=== PATIENT | male | born 2005 | race Caucasian/White ===

== ENCOUNTER 2024-12-01 19:50 | Emergency (ER) | payer BC, SELFPAY ==
--- NOTE | 2024-12-01 19:53 | ECG_ITS ---
Test Reason : CP Blood Pressure : */* mmHG Vent. Rate : 198 BPM Atrial Rate : * BPM P-R Int : * ms QRS Dur : 106 ms QT Int : 260 ms P-R-T Axes : * 11 31 degrees QTcB Int : 471 ms Supraventricular tachycardia Incomplete right bundle branch block Nonspecific ST abnormality Abnormal ECG No previous ECGs available Referred By: Lizbeth Nieto Electronically Signed By: Trevor Segundo
[2024-12-01 20:02] VITALS: BP 112/73; PULSE 202; RESP 16; BMI 26.5
[2024-12-01] MEDS: Adenosine 6 MG/2 ML VIAL IVPUSH (20:22)
[2024-12-01] MEDS: Adenosine 6 MG/2 ML VIAL 12 MG IVPUSH (20:22)
[2024-12-01 20:23] VITALS: BP 111/64; PULSE 143; RESP 11; O2SAT 100
[2024-12-01] MEDS: Metoprolol Tartrate 5 MG/5 ML VIAL IVPUSH (20:23)
--- NOTE | 2024-12-01 20:23 | ECG_ITS ---
Test Reason : SVT Blood Pressure : */* mmHG Vent. Rate : 96 BPM Atrial Rate : 96 BPM P-R Int : 146 ms QRS Dur : 106 ms QT Int : 328 ms P-R-T Axes : 56 6 31 degrees QTcB Int : 414 ms Normal sinus rhythm Possible Left atrial enlargement Incomplete right bundle branch block Borderline ECG When compared to the previous EKG of Sinus rhythm has replaced SVT Referred By: Erin Bearden Electronically Signed By: Trevor Segundo
[2024-12-01] MEDS: 0.9 % Sodium Chloride 1,000 ML 999 ML IVCONT ×2 (20:26→22:15)
[2024-12-01 20:44] LABS: MANUAL DIFF FLAG NO
--- NOTE | 2024-12-01 20:45 | PC.NURSE ---
Pts HR noted to increase to 175 bpm, MD aware. Plan for second dose of Metoprolol and Zofran as pt was reporting nausea. While t/w was retrieving the Metoprolol, pt started to vomit and his SVT broke to a NSR at 96 bpm. Pt reports relief of symptoms, no longer feeling nauseated, refusing Zofran. Metoprolol held. aware.
[2024-12-01 21:01] LABS: Alanine Aminotransferase 70 U/L (0-40); Albumin Level 4.5 g/dL (3.5-5.0); Alkaline Phosphatase 84 U/L (39-117); Anion Gap 16 (12-20); Aspartate Amino Transferase 54 U/L (5-37); Bilirubin Direct 0.2 mg/dL (0.0-0.5); Bilirubin Total 0.4 mg/dL (0.0-1.0); Blood Urea Nitrogen 19 mg/dL (9-16); Calcium 9.4 mg/dL (8.4-10.2); Carbon Dioxide 21 mmol/L (22-29); Chloride 107 mmol/L (96-108); Creatinine Clr Calc Pharmacy 108.6; Estimated Glomerular Filt Rate > 60; Glucose Random 154 mg/dL (60-115); Potassium 4.7 mmol/L (3.3-5.1); Sodium 139 mmol/L (135-145); Total Protein 7.3 g/dL (6.5-8.0)
--- OUTSIDE RECORDS SUMMARY | 2024-12-01 21:01 | XMS_ITS | Clinical Summary ---
Author Organization [facility] Address [address] [id number] Care Team Providers Care Stock Crane Operator Name Role Phone Joel Pichardo MD Primary Care Provider [phone] Joel Pichardo MD Unavailable [phone] Active Problems Problem Noted Date Diagnosed Date Allergic conjunctivitis 05/19/2021 Scoliosis 04/04/2020 Overview (09/05/2023): Description: [facility] ortho 05/2020 Resolved Problems Problem Noted Date Diagnosed Date Resolved Date Encounter for immunization 10/23/2022 0 10/25/2023 Immunizations Name Administration Dates Next Due COVID-19, mRNA (Pfizer Pre F all 2022) Monovalent, 30 mcg/0.3 ml 01/22/2021,12/18/2020 DTAP-IPV 10/25/2009 DTaP 04/16/2006 DTaP-HEP B-IPV (Pediarix) 01/22/2005,2004, 2004 HIB (PRP-T) 01/22/2005,2004,2004 HPV9 (Gardasil 9) 08/13/2016,04/03/2016,01/31/20 16 Hep A (pedi) 07/31/2015,01/28/2015 Hep B (pedi) 2004 Hep B - 01/22/2005,2004,2004 Hib (PRP-OMP) 04/16/2006 IPV 01/22/2005,2004,2004 Influenza nasal,unspecified formulation 07/31/2015 Influenza,seasonal,trivalent ,preservat rand (FLUZONE MDV) 05/10/2009,05/14/2008,05/27/2006,07/23,06/18/2005 MMR 10/25/2009,04/16/2006 Meningoccal, Meningococal MC V4 unspecified 07/31/2015 Meningococcal ACWY (Menactra) 10/16/2021 Pneumococcal - 07/10/2005, 5,2004,09/10 Tdap 10/23/2022,01/28/2015 Varicella 10/25/2009,07/10/2005 influenza,seasonal,trivalent ,PF (Fluzone, Fluarix, Flulaval) 06/29/2007 Social History Tobacco Use Types Packs/Day Years Used Date Smoking Tobacco: Never Tobacco Cessation:Counseling Given: Not Answered Comments:Smoking Status:No current tobacco use Sex and Gender Information Value Date Recorded Sex Assigned at Male 02/01/2024 1:22 PM EDT Legal Sex Male 1:39 PM EDT Gender Identity Male 02/01/2024 1:22 PM EDT Sexual Orientation Straight 02/01/2024 1: 22 PM EDT Last Filed Vital Signs Vital Sign Reading Time Taken Comments Blood Pressure 110/64 10/23/2022 10:31 AM EDT Pulse 76 10/23/2022 10:31 AM EDT Temperature 37.1 ??C (98.7 ??F) 02/01/2024 1:31 PM ED T Respiratory Rate 16 10/23/2022 10:31 AM EDT Oxygen Saturation 98% 10/23/2022 10:31 AM EDT Inhaled Oxygen Concentration - - Weight 80.8 kg (178 lb 2 oz) 02/01/2024 1:31 PM EDT Height 182.9 cm (6') 10/23/2022 10:31 AM EDT Body Mass Index 24.16 10/23/2022 10:31 AM EDT Plan of Treatment Health Maintenance Due Date Last Done Comments Hepatitis C Screening 2004 COVID-19 Vaccine ( season) 2024 01/22/2021, 12/18/2020 Influenza (Season Ended) 2025 015, 05/10/2009, 05/14/2008, Additional history exists DTaP/Tdap/Td (8 - Td or Tdap) 10/23/2032 10/23/2022, 01/28/2015, 10/25/2009, Additional history exists Zoster (Shingrix) (1 of 2) 2054 10/25/2009, Hep B Completed 01/22/2005, 01/01, 2004, Additional history exists Pneumococcal Aged Out 07/10/2005, 01/01, 2004, Additional history exists No longer eligible based on patient's age to complete this topic Hib Completed 04/16/2006, 01/01, 2004, Additional history exists MMR Completed 10/25/2009, 04/16/2006 Polio (IPV/OPV) Completed 10/25/2009, 01/01, 01/22/2005, Additional history exists Varicella Completed 10/25/2009, 07/10/2005 Hearing Discontinued 01/26/2013, 10/17/2007 Hep A Completed 07/31/2015, 01/28/2015 HPV Vaccine Completed 08/13/2016, 09/2015, 01/31/2016 Meningococcal ACWY Completed 10/16/2021, 07/31/2015 LDL Cholesterol Discontinued 10/23/2022, 01/31/2016 Physical Discontinued 10/23/2022, 09/30, 04/04/2020, Additional history exists Procedures Procedure Name Priority Date/Time Associated Diagnosis Comments LIPID PANEL, PLASMA Routine 10/23/2022 1 1:30 AM EDT PURE TONE AUDIOMETRY (THRESHOLD); AIR ONLY Routine 01/26/2013 2:58 PM EDT from Last 3 Months or Most Recently Relevant to Health Maintenance Results * LIPID PANEL, PLASMA (10/23/2022 11:30 AM EDT) CHOLESTEROL/HDL RATIO 2.2 PHCT CONVERSIONS CHOLESTEROL 141 PHCT CONVERSIONS HDL 64 PHCT CONVERSIONS LDL 63 PHCT CONVERSIONS TRIGLYCERIDES 69 PHCT CONVERSIONS 10/23/2022 11:3 0 AM EDT us Joel Pichardo MD LABORATORY Final Result PHCT CONVERSIONS * PURE TONE AUDIOMETRY (THRESHOLD); AIR ONLY (01/26/2013 2:58 PM EDT) COMPLETED Completed: See Flowsheet PHCT CONVERSIONS 01/26/2013 2:58 PM EDT us Php Unknown Prov MINOR PROCEDURE Final Result Performing Organization Address City/[facility]/ZIP Co de Phone Number PHCT CONVERSIONS from Last 3 Months or Most Recently Relevant to Health Maintenance Insurance [id number] PPO Care Teams Stock Crane Operator Relationship Specialty Start Date End Date Joel Pichardo MD [address] [place] [address] PCP - General 03/08/23 Joel Pichardo MD [address] [phone] PCP - Backup PCP Pediatrics 09/02/23
--- OUTSIDE RECORDS SUMMARY | 2024-12-01 21:02 | XMS_ITS ---
Author Name [facility] Organization Unknown History of Medication Use Medication Directions Dispensed Refills Start Date End Date Stat Medication Administration not documented Medication Administration not documented completed Encounters Encounter Type Encounter Reason Primary Diagnosis Location Date Ambulatory [facility] 05/12/2024 Ambulatory [facility] 02/01/2024 Care Team Organization Name Specialty Phone Email Start Date End Da te [facility] 11/25/2024 [facility] Primary Care 05/02/2024 [facility] Primary Care 04/24/2024 [facility] 04/04/2024 [facility] Primary Care 02/01/2024 [facility] 10/16/2021 10/16/2021
--- OUTSIDE RECORDS SUMMARY | 2024-12-01 21:02 | XMS_ITS | Encounter Summary ---
Author Organization [facility] Address [address] [place] [address] Care Team Providers Care Anesthesia Technician Name Role Phone Joel Pichardo MD Primary Care Provider [phone] Joel Pichardo MD Unavailable [phone] Encounter Details Date Type Department Care Team (Late st Contact Info) Description 05/19/2012 Orders Only NON FC SA NON FC UNK Provider, Unknown Social History Tobacco Use Types Packs/Day Years Used Date Smoking Tobacco: Never Assessed Sex and Gender Information Value Date Recorded Sex Assigned at Male 02/01/2024 1:22 PM EDT Legal Sex Male 1:39 PM EDT Gender Identity Male 02/01/2024 1:22 PM EDT Sexual Orientation Straight 02/01/2024 1: 22 PM EDT documented as of this encounter Plan of Treatment Not on file documented as of this encounter Visit Diagnoses Not on filedocumented in this encounter Care Teams Anesthesia Technician Relationship Specialty Start Date End Date [place] [address] PCP - General 03/08/23 [place] [address] PCP - Backup PCP Pediatrics 09/02/23 documented as of this encounter
--- OUTSIDE RECORDS SUMMARY | 2024-12-01 21:02 | XMS_ITS | Encounter Summary ---
Author Organization [facility] Address [address] [place] [address] Care Team Providers Care Denture Finisher Name Role Phone Joel Pichardo MD Primary Care Provider [phone] Joel Pichardo MD Unavailable [phone] Encounter Details Date Type Department Care Team (Late st Contact Info) Description 12/18/2009 Orders Only NON FC SA NON FC [...] on filedocumented in this encounter Care Teams Denture Finisher Relationship Specialty Start Date End Date Joel Pichardo MD [place] [phone] PCP - General 03/08/23 [place] [address] PCP - Backup PCP Pediatrics 09/02/23 documented as of this encounter
--- OUTSIDE RECORDS SUMMARY | 2024-12-01 21:02 | XMS_ITS | Clinical Summary ---
Author Organization [facility] Address [address] [place] [address] Care Team Providers Care Chairman President And Chief Executive Officer Name Role Phone Joel Pichardo MD Primary Care Provider [phone] Source Comments Please note that some or all of the patient's information could have additional privacy protections. State laws allow health care providers to render certain types of treatment to minors without parental consent. Please do not assume that this information can be shared solely by obtaining just the consent of the patient's parent/guardian. Please determine if all or part of the patient's care was rendered without parent/guardian involvement. And, if so, obtain the minor's consent prior to disclosure.[facility] Allergies No known active allergies Medications No known medications Family History Medical History Relation Name Comments Scoliosis Maternal Grandmother Relation Name Status Comments Maternal Grandmother Social History Tobacco Use Types Packs/Day Years Used Date Smoking Tobacco: Never Other Needs Answer Date Recorded Anything else about your child you'd like help w ith? Not on file 04/16/2023 Share good news about positive changes: Not on f ile 04/16/2023 Sex and Gender Information Value Date Recorded Sex Assigned at Not on file Legal Sex Male 2:20 AM EST Gender Identity Not on file Sexual Orientation Not on file Last Filed Vital Signs Vital Sign Reading Time Taken Comments Blood Pressure 144/78 05/02/2020 3:59 PM EDT Pulse 104 05/02/2020 3:59 PM EDT Temperature - - Respiratory Rate - - Oxygen Saturation - - Inhaled Oxygen Concentration - - Weight 88.9 kg (195 lb 15.8 oz) 05/02/2020 3:59 PM EDT Height 181 cm (5' 11.26 ) 05/02/2020 3:59 PM EDT Body Mass Index 27.14 05/02/2020 3:59 PM EDT Plan of Treatment Health Maintenance Due Date Last Done Comments DTaP/TDAP/TD VACCINES (1 - Tdap) 2011 ADOLESCENT HIV SCREENING 2017 COVID-19 Vaccine (2023-2 5 season) 2024 INFLUENZA (#1) 2024 NIRSEVIMAB VACCINES UNDER 8 MONTHS Aged Out No longer eligible based on patient's age to complete this topic Insurance [employer] Care Teams Chairman President And Chief Executive Officer Relationship Specialty Start Date End Date Joel Pichardo MD [address] [place] [id number] PCP - General General Pediatrics 04/12/20
--- OUTSIDE RECORDS SUMMARY | 2024-12-01 21:02 | XMS_ITS | Encounter Summary ---
Author Organization [facility] Address [address] [place] [address] Care Team Providers Care Home Maker Name Role Phone Joel Pichardo MD Primary Care Provider [phone] Joel Pichardo MD Unavailable [phone] Encounter Details Date Type Department Care Team (Late st Contact Info) Description 12/02/2010 Orders Only NON FC SA NON FC [...] on filedocumented in this encounter Care Teams Home Maker Relationship Specialty Start Date End Date [place] [phone] PCP - General 03/08/23 [place] [phone] PCP - Backup PCP Pediatrics 09/02/23 documented as of this encounter
--- OUTSIDE RECORDS SUMMARY | 2024-12-01 21:02 | XMS_ITS | Encounter Summary ---
Author Organization [facility] Address [address] [place] [address] Care Team Providers Care Windmill Mechanic Name Role Phone Joel Pichardo MD Primary Care Provider [phone] Joel Pichardo MD Unavailable [phone] Encounter Details Date Type Department Care Team (Late st Contact Info) Description 10/18/2008 Orders Only NON FC SA NON FC [...] on filedocumented in this encounter Care Teams Windmill Mechanic Relationship Specialty Start Date End Date [place] [phone] PCP - General 03/08/23 [place] [phone] PCP - Backup PCP Pediatrics 09/02/23 documented as of this encounter
--- OUTSIDE RECORDS SUMMARY | 2024-12-01 21:02 | XMS_ITS | Clinical Summary ---
Author Organization [facility] Address [address] [place] [address] Care Team Providers Care Painting And Coating Worker Name Role Phone Unavailable Primary Care Provider Unavailabl e Social History Tobacco Use Types Packs/Day Years Used Date Smoking Tobacco: Never Assessed Sex and Gender Information Value Date Recorded Sex Assigned at Not on file Legal Sex Male 6:20 PM EST Gender Identity Not on file Sexual Orientation Not on file Last Filed Vital Signs Vital Sign Reading Time Taken Comments Blood Pressure 104/70 06/06/2020 6:00 PM EST Sitting Left arm Pulse 106 06/06/2020 6:00 PM EST Temperature - - Respiratory Rate - - Oxygen Saturation - - Inhaled Oxygen Concentration - - Weight 89 kg (196 lb 3.4 oz) 06/06/2020 6:00 PM EST Height - - Body Mass Index - - Plan of Treatment Health Maintenance Due Date Last Done Comments Varicella Vaccines (1 of 2 - 13+ 2-dose series) 2017 HPV Vaccines (1 - Male 3-dos e series) 2019 Meningococcal B Vaccine (1 o f 2 - Standard) 2020 DTaP,Tdap,and Td Vaccines (1 - Tdap) 2023 Hepatitis B Vaccines (1 of 3 - 19+ 3-dose series) 2023 COVID-19 Vaccine ( - 2023-2 5 season) 2024 Influenza Vaccine (Season Ended) 2025 HIB Vaccines Aged Out No longer eligi ble based on patient's age to complete this topic Hepatitis A Vaccines Aged Out No long er eligible based on patient's age to complete this topic IPV Vaccines Aged Out No longer eligi ble based on patient's age to complete this topic MMR Vaccines Aged Out No longer eligi ble based on patient's age to complete this topic Meningococcal ACWY Vaccine Aged Out N o longer eligible based on patient's age to complete this topic Pneumococcal Vaccine: Pediat rics (0 to 5 Years) and At-Risk Patients (6 to 64 Years) Aged Out No longer eligible b ased on patient's age to complete this topic RSV Immunization Patients Un jb 20 months Aged Out No longer eligible b ased on patient's age to complete this topic
--- OUTSIDE RECORDS SUMMARY | 2024-12-01 21:02 | XMS_ITS | Clinical Summary ---
Author Organization [facility] Address [address] [place] [address] Care Team Providers Care Cash Manager Name Role Phone Unavailable Primary Care Provider Unavailabl e Medications No known medications Active Problems No known active problems Social History Tobacco Use Types Packs/Day Years Used Date Smoking Tobacco: Never Assessed Sex and Gender Information Value Date Recorded Sex Assigned at Not on file Gender Identity Not on file Sexual Orientation Not on file Last Filed Vital Signs Vital Sign Reading Time Taken Comments Blood Pressure 104/70 06/06/2020 6:00 PM EST Pulse 106 06/06/2020 6:00 PM EST Temperature 37 ??C (98.6 ??F) 06/06/2020 6:00 PM EST Respiratory Rate - - Oxygen Saturation 96% 06/06/2020 6:00 PM EST Inhaled Oxygen Concentration - - Weight 89 kg (196 lb 3.4 oz) 06/06/2020 6:00 PM EST Height - - Body Mass Index - - Plan of Treatment Health Maintenance Due Date Last Done Comments Hepatitis B Vaccines (1 of 3 - 3-dose series) 2004 Hepatitis C Screening 2004 COVID-19 Vaccine (#1) 01/03/2005 Depression Screening 2016 Preventative Health Evaluation 2022 DTap / Tdap / Td (1 - Tdap) 2023 Influenza Vaccine (#1) 2024 Pneumococcal Vaccine Aged Out No long er eligible based on patient's age to complete this topic RSV Ped < 20 months Aged Out No longe r eligible based on patient's age to complete this topic
[2024-12-01 21:07] LABS: B Type Natriuretic Peptide < 10 pg/mL (<100)
[2024-12-01 21:08] LABS: Troponin-I High Sensitivity 69.4 ng/L (<3.5-35.0)
--- NOTE | 2024-12-01 21:14 | ED.CHESTPAIN ---
HPI - Chest Pain General Chief Complaint: Chest Pain Stated Complaint: chest pain Time Seen by Provider: 12/01/24 20:11 Source: patient Mode of arrival: ambulatory Limitations: no limitations History of Present Illness ED Provider: Dr. Erin Bearden HPI narrative: Patient comes to the emergency room reporting substernal chest pressure, palpitations, mild shortness of breath. Patient states that earlier today he was hiking and playing golf just prior to arrival. Patient denies any medical history. Patient denies any syncopal episodes. Denies using drugs or alcohol. Related Data Previous Rx's ?Medication ?Instructions ?Recorded metoprolol succinate 25 mg 25 mg PO DAILY #90 tabs 12/02/24 tablet,extended release 24 hr (Toprol XL) Allergies Allergy/AdvReac Type Severity Reaction Status Date / Time No Known Allergies Allergy Verified 12/01/24 20:03 Review of Systems Review of Systems: Constitutional : No Weight loss, No Fever, No Chills, No Night Sweats, No Fatigue, No Malaise ENT/Mouth : No Hearing loss, No Ear Pain, No Nasal Congestion, No Sinus Pain, No Hoarseness, No sore throat, No Rhinorrhea, No Swallowing Difficulty Eyes: No Eye Pain, No Swelling, No Redness, No Foreign Body, No Discharge, No Vision Changes Cardiovascular : Patient complaining of substernal chest pressure, minimal pain, complaining of palpitations, rapid heart rate Respiratory : No Cough, No Sputum, No Wheezing, No Smoke Exposure, complaining of mild Dyspnea Gastrointestinal : No Nausea, No Vomiting, No Diarrhea, No Constipation, No abdominal Pain, No Hematochezia, No Melena Genitourinary : no irregular bleeding, No Dysuria, No Urinary Frequency, No Hematuria, No Urinary Incontinence, No Urgency, No Flank Pain, No Urinary Flow Changes, No Hesitancy Musculoskeletal : No joint pain, No Myalgias, No Joint Swelling Skin : No Skin Lesions, No rash Neuro : No Weakness, No Numbness, No Paresthesias, No Loss of Consciousness, No Dizziness, No Headache Psych : No Anxiety/Panic, No Depression, No SI/HI/AH/VH, No Social Issues, Heme/Lymph: No Bruising, No Bleeding,No Lymphadenopathy Endocrine : No Polyuria, No Polydipsia, No Temperature Intolerance PMFSH Social History Social History Smoked in Last 30 Days: No Use of substances other than those prescribed or required for medical reasons: No Advance Directives: No Advance Directives Information Provided: No Do you have a plan to hurt others: No Plan Physical Exam Vital Signs: Vital Signs: Last Vital Signs Pulse 83 12/02/24 00:00 Resp 15 12/02/24 00:00 BP 97/61 12/02/24 00:00 Pulse Ox 96 12/02/24 00:00 O2 Del Method Room Air 12/02/24 00:00 BMI result Body Mass Index 26.5 Const: Other: Appearance: Alert. Oriented X3. No acute distress. Eyes: Pupils equal, round and reactive to light. ENT: Pharynx normal. Neck: Normal inspection. Neck supple. No lymph nodes noted. No crepitus CVS: Heart rate above 200, Pulses normal. Normal S1 and S2 Respiratory: No respiratory distress. Breath sounds normal. No Wheezing. No rales Abdomen: Soft and nontender. No rigidity. No distention. Skin: Skin warm and dry. Normal skin color. Normal skin turgor. Extremities: No lower extremity edema. No Lacerations. No Rash Neuro: Oriented X 3. No motor deficit. No sensory deficit. Moving all extremities. No slurred speech. CN 2 through 12 grossly intact Psych: calm, cooperative, normal affect Medications Administered Discontinued Medications Generic Name Dose Route Start Last Admin Trade Name Tonyq PRN Reason Stop Dose Admin Adenosine 6 mg 12/01/24 20:20 12/01/24 20:22 Adenosine 6 Mg/2 Ml Vial IVPUSH 12/01/24 20:21 6 mg STAT STA Administration Adenosine 12 mg 12/01/24 20:20 12/01/24 20:22 Adenosine 6 Mg/2 Ml Vial IVPUSH 12/01/24 20:21 12 mg STAT STA Administration Sodium Chloride 1,000 mls @ 999 mls/hr 12/01/24 20:21 12/01/24 22:13 Ns IVCONT 12/01/24 21:21 Infused .Q1H1M ONE Infusion Sodium Chloride 1,000 mls @ 999 mls/hr 12/01/24 22:06 12/01/24 23:37 Ns IVCONT 12/01/24 23:06 Infused .Q1H1M ONE Infusion Metoprolol Tartrate 5 mg 12/01/24 20:21 12/01/24 20:23 Metoprolol Tartrate 5 Mg/5 Ml Vial IVPUSH 12/01/24 20:22 5 mg ONCE ONE Administration Protocol Metoprolol Tartrate 5 mg 12/01/24 20:43 12/01/24 20:45 Metoprolol Tartrate 5 Mg/5 Ml Vial IVPUSH 12/01/24 20:44 Not Given ONCE ONE Protocol Ondansetron HCl 4 mg 12/01/24 20:43 12/01/24 20:45 Ondansetron Hcl 4 Mg/2 Ml Vial IVPUSH 12/01/24 20:44 Not Given ONCE ONE Ondansetron HCl 4 mg 12/01/24 21:36 12/01/24 21:37 Ondansetron Hcl 4 Mg/2 Ml Vial IVPUSH 12/01/24 21:37 4 mg ONCE ONE Administration Medical Decision Making Medical Decision Making MDM Narrative: When patient arrived, an EKG was done. My interpretation: SVT, heart rate 198, nonspecific changes, QTC 471 Patient was given 6 mg of adenosine without change, then 12 mg. Then 5 mg of adenosine. Slowly, the heart rate decreased, stayed in the 150s for about 1/2 hour and then suddenly dropped to 80-90 Patient states that he feels much better, no pressure, no chest pain. Next EKG shows normal sinus rhythm, heart rate 96, no ST segment depression or elevation, no T-wave inversion, no delta waves, QTC 414 My interpretation of labs: Patient's white blood cell count is slightly elevated, likely reactive leukocytosis, normal chemistry, troponin bumped at 69.4, 2nd troponin was 471, expected due to the SVT, BNP negative I discussed the patient with Dr. Segundo from Cardiology, patient will be started on 25 mg of Toprol, no need for admission I discussed the above-mentioned with the patient and his family, all agree with plan. Patient will follow-up with cardiology Differential Diagnosis Differential Diagnoses: The differential diagnosis associated with the presentation includes (SVT, AFib, a flutter) Admission/Observation Consideration of admission/observation: Escalation of care including admission/observation considered (Given patient's presentation vitals, observation was considered) Consult Healthcare Provider Management of the patient was discussed with: [employer] Lab Data [facility] Lab Attestation statement: I reviewed the patient's lab results. 12/01/24 20:40 12/01/24 20:41 Labs: Lab Results 12/01/24 12/01/24 12/01/24 Range/Units 20:40 20:41 23:42 WBC 11.0 H (4.8-10.8) X10*3/uL RBC 4.90 (4.60-5.80) X10*6/uL Hgb 14.6 (14.0-18.0) g/dl Hct 43.0 (42.0-52.0) % MCV 87.8 (80.0-98.0) fL MCH 29.8 (27.0-33.0) pg MCHC 34.0 (31.0-36.0) g/dl RDW 12.1 (11.0-16.0) % Plt Count 225 (160-400) X10*3/uL MPV 10.4 (9.4-12.4) fL Immature Gran % (Auto) 0.4 (0.0-0.4) % Neut % (Auto) 78.6 H (45-73) % Lymph % (Auto) 11.3 L (20-40) % [place] % (Auto) 7.4 (2-11) % Eos % (Auto) 1.8 (0-4) % Baso % (Auto) 0.5 (0-2) % Lymph # (Auto) 1.2 (1.2-4.9) X10*3/uL [place] # (Auto) 0.8 (0.1-1.2) X10*3/uL Eos # (Auto) 0.2 (0.0-0.4) X10*3/uL Baso # (Auto) 0.1 (0.0-0.2) X10*3/uL Abs Immat Gran (auto) 0.04 H (0.00-0.03) X10*3/uL Absolute Neuts (auto) 8.6 H (2.0-8.3) x10*3/uL Absolute Nucleated RBC 0.000 (0.0-0.012) X10*3/uL Nucleated RBC % (auto) 0.0 (0.0-0.2) /100WBC Sodium 139 (135-145) mmol/L Potassium 4.7 (3.3-5.1) mmol/L Chloride 107 (96-108) mmol/L Carbon Dioxide 21 L (22-29) mmol/L Anion Gap 16 (12-20) BUN 19 H (9-16) mg/dL Creatinine 1.12 (0.5-1.4) mg/dL Estim Creat Clear Calc 108.6 Estimated GFR > 60 Random Glucose 154 H (60-115) mg/dL Calcium 9.4 (8.4-10.2) mg/dL Total Bilirubin 0.4 (0.0-1.0) mg/dL Direct Bilirubin 0.2 (0.0-0.5) mg/dL AST 54 H (5-37) U/L ALT 70 H (0-40) U/L Alkaline Phosphatase 84 (39-117) U/L Troponin I High Sens 69.4 H 470.8 H* D (<3.5-35.0) ng/L B-Natriuretic Peptide < 10 (<100) pg/mL Total Protein 7.3 (6.5-8.0) g/dL Albumin 4.5 (3.5-5.0) g/dL Urine Opiates Screen (Not Detect) Ur Buprenorphine Scrn (Not Detect) ng/mL Ur Oxycodone Screen (Not Detect) ng/mL Urine Methadone Screen (Not Detect) ng/mL Urine Fentanyl Screen (Not Detect) Ur Barbiturates Screen (Not Detect) Ur Phencyclidine Scrn (Not Detect) Ur Amphetamines Screen (Not Detect) U Benzodiazepines Scrn (Not Detect) Urine Cocaine Screen (Not Detect) U Marijuana (THC) Screen (Not Detect) 12/02/24 Range/Units 00:31 WBC (4.8-10.8) X10*3/uL RBC (4.60-5.80) X10*6/uL Hgb (14.0-18.0) g/dl Hct (42.0-52.0) % MCV (80.0-98.0) fL MCH (27.0-33.0) pg MCHC (31.0-36.0) g/dl RDW (11.0-16.0) % Plt Count (160-400) X10*3/uL MPV (9.4-12.4) fL Immature Gran % (Auto) (0.0-0.4) % Neut % (Auto) (45-73) % Lymph % (Auto) (20-40) % [place] % (Auto) (2-11) % Eos % (Auto) (0-4) % Baso % (Auto) (0-2) % Lymph # (Auto) (1.2-4.9) X10*3/uL [place] # (Auto) (0.1-1.2) X10*3/uL Eos # (Auto) (0.0-0.4) X10*3/uL Baso # (Auto) (0.0-0.2) X10*3/uL Abs Immat Gran (auto) (0.00-0.03) X10*3/uL Absolute Neuts (auto) (2.0-8.3) x10*3/uL Absolute Nucleated RBC (0.0-0.012) X10*3/uL Nucleated RBC % (auto) (0.0-0.2) /100WBC Sodium (135-145) mmol/L Potassium (3.3-5.1) mmol/L Chloride (96-108) mmol/L Carbon Dioxide (22-29) mmol/L Anion Gap (12-20) BUN (9-16) mg/dL Creatinine (0.5-1.4) mg/dL Estim Creat Clear Calc Estimated GFR Random Glucose (60-115) mg/dL Calcium (8.4-10.2) mg/dL Total Bilirubin (0.0-1.0) mg/dL Direct Bilirubin (0.0-0.5) mg/dL AST (5-37) U/L ALT (0-40) U/L Alkaline Phosphatase (39-117) U/L Troponin I High Sens (<3.5-35.0) ng/L B-Natriuretic Peptide (<100) pg/mL Total Protein (6.5-8.0) g/dL Albumin (3.5-5.0) g/dL Urine Opiates Screen Not Detected (Not Detect) Ur Buprenorphine Scrn Not Detected (Not Detect) ng/mL Ur Oxycodone Screen Not Detected (Not Detect) ng/mL Urine Methadone Screen Not Detected (Not Detect) ng/mL Urine Fentanyl Screen Not Detected (Not Detect) Ur Barbiturates Screen Not Detected (Not Detect) Ur Phencyclidine Scrn Not Detected (Not Detect) Ur Amphetamines Screen Not Detected (Not Detect) U Benzodiazepines Scrn Not Detected (Not Detect) Urine Cocaine Screen Not Detected (Not Detect) U Marijuana (THC) Screen Not Detected (Not Detect) Independent Interpretation I performed an independent interpretation of an: EKG (As above) Critical Care Time Critical Care Time Critical Care Time: Yes Total Critical Care Time: 60 Attestation: I have personally provided critical care time. Time includes review of lab data, radiology results, discussion with consultants, and monitoring for potential decompensation. Intervention performed as documented. Discharge Plan Discharge Clinical Impression: SVT (supraventricular tachycardia) Patient Disposition: Home, Self-Care Instructions: Supraventricular Tachycardia (ED) Additional Instructions: Please follow-up with your primary care physician tomorrow. If you have any worsening or new symptoms, please return to the emergency room or call 911 Prescriptions: New metoprolol succinate [Toprol XL] 25 mg tablet extended release 24 hr 25 mg PO DAILY Qty: 90 0RF Referrals: Trevor Segundo MD [Physician] - 12/04/24 Stand Alone Forms: Work/School Release Print Language: Bulgarian
[2024-12-01 21:30] LABS: Basophils Absolute Auto 0.1 X10*3/uL (0.0-0.2); Basophils Percent Auto 0.5 % (0-2); Eosinophils Absolute Auto 0.2 X10*3/uL (0.0-0.4); Eosinophils Percent Auto 1.8 % (0-4); Hemoglobin 14.6 g/dl (14.0-18.0); Imm Gran Abs Auto 0.04 X10*3/uL (0.00-0.03); Imm Gran Pct Auto 0.4 % (0.0-0.4); Lymphocytes Absolute Auto 1.2 X10*3/uL (1.2-4.9); Lymphocytes Percent Auto 11.3 % (20-40); Mean Corpuscular Hemoglobin 29.8 pg (27.0-33.0); Mean Corpuscular Volume 87.8 fL (80.0-98.0); Mean Platelet Volume 10.4 fL (9.4-12.4); Monocytes Absolute Auto 0.8 X10*3/uL (0.1-1.2); Monocytes Percent Auto 7.4 % (2-11); Neutrophils Absolute Auto 8.6 x10*3/uL (2.0-8.3); Neutrophils Percent Auto 78.6 % (45-73); Platelet Count 225 X10*3/uL (160-400); Red Cell Distribution Width 12.1 % (11.0-16.0)
[2024-12-01] MEDS: ondansetron HCL 4 MG/2 ML VIAL IVPUSH (21:37)
[2024-12-01 21:40] VITALS: BP 101/45; PULSE 96; RESP 16; O2SAT 100
[2024-12-01 22:00] VITALS: BP 95/63; PULSE 88; RESP 21; O2SAT 100
[2024-12-02] VITALS: BP 97/61; PULSE 83; RESP 15; O2SAT 96
[2024-12-02 00:34] LABS: Troponin-I High Sensitivity 470.8 ng/L (<3.5-35.0)
[2024-12-02 00:50] LABS: Amphetamine Screen Urine Not Detected (Not Detect); Barbiturates, Urine Not Detected (Not Detect); Benzodiazepines Screen Urine Not Detected (Not Detect); Buprenorphine Scr Not Detected (Not Detect); Cannabinoid Screen Urine Not Detected (Not Detect); Cocaine Screen Urine Not Detected (Not Detect); Fentanyl, urine Not Detected (Not Detect); Methadone Screen, Urine Not Detected (Not Detect); Opiate Screen Urine Not Detected (Not Detect); Oxycodone Screen Urine Not Detected (Not Detect); Phencyclidine Screen Urine Not Detected (Not Detect)
[2024-12-02 01:11] VITALS: BP 97/61; PULSE 83; RESP 15; TEMP 36.7; O2SAT 96
== END 2024-12-02 01:13 | disposition home or self-care (01) ==
PROVIDERS: Emergency Provider Emergency Medicine
DX: I47.10 Supraventricular tachycardia, unspecified (principal); R07.9 Chest pain, unspecified
CPT/HCPCS: 36415; 80048; 80076; 80307; 83880; 84484; 85025; 93005; 96361; 96374; 96375; 99285; J0153; J2405

== ENCOUNTER → 2024-12-01 19:53 | Outpatient (BNV) | payer BC, SELFPAY | PROVIDERS: Emergency Provider Emergency Medicine; Visit Provider Internal Medicine Cardiovascular Disease | DX: I47.10 Supraventricular tachycardia, unspecified (principal); I45.10 Unspecified right bundle-branch block | CPT/HCPCS: 93010 ==